=== PATIENT | male | born 1975 | race Caucasian/White ===

== ENCOUNTER 2018-07-04 00:26 | Outpatient (CLI) | payer SELFPAY ==
[2018-07-04] MEDS: Omnipaque 350 MG/ML 100 ML BTL IJ (12:35)
--- NOTE | 2018-07-04 12:45 | DI.CT_ITS ---
SYMPTOMS/DIAGNOSIS: LEFT LOWER QUADRANT PAIN STARTED AFTER LIFTING INJURY, ? HERNIA CT OF THE ABDOMEN AND PELVIS: Comparison is made with July,. Images were performed from the lung bases through the ischial tuberosities after IV and without oral contrast. The lung bases are clear. The heart size is normal. The liver, gallbladder, spleen, pancreas, adrenals and kidneys are unremarkable. The appendix appears normal. No bowel dilatation or inflammatory changes are seen. There is a small amount of fat at the umbilicus. No inguinal hernias are seen. There is no visible soft tissue hematoma. The prostate is normal in size. The urinary bladder is nearly empty. The aorta is normal in diameter. There are mild degenerative changes in the spine. IMPRESSION: No acute abnormality.
== END 2018-07-04 00:46 ==
PROVIDERS: PCP General Practice; Visit Provider Nurse Practitioner Family
DX: R10.32 Left lower quadrant pain (principal)
CPT/HCPCS: 74177; J3490

== ENCOUNTER 2019-07-21 12:02 | Outpatient (REF) | payer MEDICAID, SELFPAY ==
[2019-07-21 18:46] LABS: HCT 46.1 % (40.0-50.0); Mean Corp. HGB Concentration 32.5 g/dL (32.0-36.0); Mean Corpuscular Hemoglobin 29.9 pg (27.0-33.0); Mean Corpuscular Volume 91.8 fL (80-95); Mean Platelet Volume 10.7 fL (8.0-11.0); Platelet Count 283 x1000/uL (130-400); RBC 5.02 m/cumm (4.50-6.00); RBC Distribution Width 12.7 % (11.8-14.1); White Blood Cell Count 9.56 k/cumm (4.4-10.8)
[2019-07-21 19:12] LABS: ALT 45 U/L (16-63); AST 18 U/L (15-37); Albumin 4.4 g/dL (3.4-5.0); Alkaline Phosphatase 50 U/L (46-116); Anion Gap 5.9 mmol/L (3-11); BUN 17 mg/dL (7-18); Bilirubin, Total 0.8 mg/dL (0.2-1.0); CO2 31.1 mmol/L (21.0-32.0); CREATININE 1.24 mg/dL (0.70-1.30); Calcium 9.3 mg/dL (8.5-10.1); Calculated LDL 160 mg/dL (<100); Chloride 103 mmol/L (98-107); Cholesterol 267 mg/dL (<200); Glucose 91 mg/dL (74-106); HDL Cholesterol 47 mg/dL (40-60); Potassium 4.7 mmol/L (3.5-5.1); Sodium 140 mmol/L (136-145); Total Protein 7.7 g/dL (6.4-8.2); Triglyceride 301 mg/dL (<150)
[2019-07-23 10:34] LABS: HIV-1/2 Ag & Ab Screen Negative (Negative)
[2019-07-23 10:56] LABS: HBs Antibody, Quant <3.1 mIU/mL (See Note); Hepatitis B Surface Ab Negative (See Note); Hepatitis B Surface Ag Negative (Negative)
[2019-07-23 11:28] LABS: Hepatitis C Ab w Rflx HCV PCR Negative (Negative)
[2019-07-23 11:45] LABS: Syphilis Serology (RPR) Negative (Negative)
[2019-07-23 12:56] LABS: Chlamydia Result Negative (Negative); GC Result Negative (Negative)
== END 2019-07-21 12:22 ==
LOC: NCHCN 12:02
PROVIDERS: PCP Nurse Practitioner Family; Visit Provider Nurse Practitioner Family
DX: Z13.220 Encounter for screening for lipoid disorders (principal); Z11.59 Encounter for screening for other viral diseases; Z00.00 Encounter for general adult medical examination without abnormal findings; Z11.4 Encounter for screening for human immunodeficiency virus [HIV]; Z11.3 Encounter for screening for infections with a predominantly sexual mode of transmission
CPT/HCPCS: 80053; 80061; 85027; 86706; 86803; 87340; 87389; 87491; 87591; 86592

== ENCOUNTER 2020-11-09 18:38 | Observation (INO) | payer MEDICAID, SELFPAY ==
[2020-11-09] VITALS (17 sets, daily range): BP systolic 108–140; BP diastolic 79–90; PULSE 68–101; RESP 17–26; TEMP 36.8; O2SAT 94–99
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
--- NOTE | 2020-11-09 19:00 | RT.EKG_ITS ---
APPROVED REPORT Exam: Resting ECG Reason for Exam: possible cva Patient Location: E HR:82 bpm ECG Measurements Heart Rate 82 AXIS MT 151 P 32 QRSd 97 QRS -7 QT 369 T 27 QTc 430 Conclusion Sinus rhythm...normal P axis, V-rate 60- 99 Probable left atrial enlargement...P >50mS, <-0.10mV V1 I have reviewed and interpreted ECG and agree with software generated interpretation.
[2020-11-09] MEDS: Omnipaque 350 MG/ML 100 ML BTL IJ (19:28)
[2020-11-09] MEDS: Normal Saline - Diluent 50 ML VIAL IV (19:29)
[2020-11-09 19:32] LABS: Abs Immature Grans 0.03 10^3/uL (0.0-0.06); Absolute Basophil Count 0.04 10^3/uL (0.0-0.2); Absolute Eosinophil Count 0.19 10^3/uL (0.0-0.7); Absolute Lymphocyte Count 2.07 10^3/uL (1.2-3.4); Absolute Monocyte Count 1.11 10^3/uL (0.1-0.8); Basophils % 0.4; Eosinophils % 1.9; HCT 46.1 % (40.0-50.0); HGB 15.6 g/dL (13.5-17.5); Immature Grans % 0.3; Lymphocytes % 20.8; MCHC 33.8 % (32.0-36.0); MCV 94.5 fL (80-95); Monocytes % 11.2; Neutrophils % 65.4; Nucleated RBC 0 %; Platelet Count 290 10^3/uL (130-400); RBC 4.88 10^6/uL (4.36-5.78); RDW 12.4 % (11.8-14.1); RDW-SD 43.2 fL; WBC 9.94 10^3/uL (4.4-10.8)
[2020-11-09 19:35] LABS: Prothrombin Time 10.1 sec (9.3-11.0)
[2020-11-09 19:38] LABS: ETHANOL BLOOD 90.9 mg/dL (<3)
--- NOTE | 2020-11-09 19:41 | DI.CT_ITS ---
Exam(s) CT BRAIN NECK CTA EXAM: CT BRAIN NECK CTA CLINICAL HISTORY: R sided HOOKS, L hand/tongue numbness, r/o cva. TECHNIQUE: Imaging Protocol: Axial CT angiography was performed with multi-slice acquisition and mu lti-planar and/or 3D reconstructions. CONTRAST MATERIAL: Intravenous: Omnipaque 350 Contrast volume:85cc FINDINGS: CTA Neck W: Aortic arch anatomy: Aortic arch anatomy is un conventional in that the left vertebral artery arises as an independent vessel off the aortic arch instead of arising in conventional fashion off of the le ft subclavian artery. There is no significant stenosis at the origin of this vessel nor of the other great vessels off of t he aortic arch. Anterior circulation: Both common carotid arteries exhibit normal diameters and no significant plaque. There is also no si gnificant atherosclerotic disease at the level the carotid bifurcations nor in the proximal internal carotid arteries in the neck nor in the more distal aspect of these non tortuous vessels in the neck. Both internal carotid arteries are demonstrated to be patent in the skull base-carotid canals Posterior circulation: The vertebral arteries are patent without intraluminal thrombus nor dissection. Both exhibit approxi mately equal normal diameters in the foramen transversarium. At the skull base both vertebral arteri es contribute to the formation of the basilar artery. CTA Brain W: Anterior circulation: Both internal carotid arteries are patent in the skull base as well as within the cavernous sinuses. The supraclinoid aspects of these vessels are patent and nonaneurysmal. Both middle cerebral arteri es are demonstrated be patent out to the sylvian fissure branches. No intraluminal thrombus nor aneu rysm seen in these vessels. Both A1 segments are patent as are both anterior cerebral arteries. The re is a double anterior communicating artery evident. No aneurysm at this level. Posterior circulation: Basilar artery is formed at the skull base by both vertebral arteries. The basilar artery ascends in the midline. Distally the basilar artery terminates as patent bilateral posterior cerebral arteries . The superior cerebellar arteries appear to originate off a common trunk with posterior cerebral ar teries. The left superior cerebellar artery is less than typically opacified. CT BRAIN: There is no evidence of intracranial hemorrhage, mass effect, or shift of midline structures. There are no extra-axial fluid collections. Ventricles are not enlarged or shifted and there is no blood w ithin the ventricular system nor within the basal cisterns. There are no ring enhancing lesions in t he brain and no abnormal meningeal enhancement. IMPRESSION: 1. No acute intracranial findings. No abnormal intracranial enhancement. 2. Patent carotid and vertebral arteries in the neck. No significant atherosclerotic involvement of these vessels in the neck. 3. Patent intracranial arteries, as described above. If clinically indicated follow-up MRI/MRA can be performed RADIATION DOSE DELIVERED: 2,265.56mGy.cm Total DLP DATA REPOSITORY: All CT scans at this facility are submitted to the National Radiology Data Registry (NRDR) Dose Index Registry (DIR) with the [employer] ([employer]). RADIATION OPTIMIZATION: All CT scans at this facility use at least one of these dose optimization te chniques: automated exposure control; mA and/or kV adjustment per patient size (includes targeted exa ms where dose is matched to clinical indication); or iterative reconstruction.
--- NOTE | 2020-11-09 19:41 | DI.RAD_ITS ---
Exam(s) XR CHEST 2V PA LATERAL EXAM: XR CHEST 2V PA LATERAL CLINICAL HISTORY: L hand/tongue numb, possible cva,r/o acute disease. TECHNIQUE: 2D digital imaging was performed. COMPARISON: CR CHEST 2 VIEWS PA,LAT from 12/07/2017 FINDINGS: Heart size is normal. The mediastinum is not widened. Right lung is clear. Increased markings in the lingular segment left lung adjacent to the heart border, more so than previ ous. No pleural effusions. No pulmonary edema. No pneumothorax. IMPRESSION: Increasing markings in the lingular segment left lung. Compatible with infiltrate at this level. Th ere are no pleural effusions. DATA REPOSITORY: RADIATION DOSE DELIVERED:
[2020-11-09 19:45] LABS: ALT 52 U/L (16-63); AST 43 U/L (15-37); Albumin 3.8 g/dL (3.4-5.0); Alkaline Phosphatase 50 U/L (46-116); BUN 8 mg/dL (7-18); CREATININE 1.1 mg/dL (0.70-1.30); Calcium 8.9 mg/dL (8.5-10.1); Chloride 100 mmol/L (98-107); Glucose 98 mg/dL (74-106); Magnesium 2.2 mg/dL (1.8-2.4); Potassium 3.8 mmol/L (3.5-5.1); Sodium 138 mmol/L (136-145); Total Protein 7.6 g/dL (6.4-8.2)
[2020-11-09 19:48] LABS: Troponin I < 0.05 ng/mL (<0.06)
[2020-11-09] MEDS: Normal Saline 1,000 ML 1000 ML IV (19:52)
--- NOTE | 2020-11-09 19:56 | NUR.NOTE ---
report given to NEAL Velazquez
--- NOTE | 2020-11-09 20:02 | DI.VRAD_ITS ---
PROCEDURE INFORMATION: Exam: XR Chest Exam date and time: 11/09/2020 7:41 PM Age: 45 years old Clinical indication: Other: Lhand/tongue numbness, possible CVA TECHNIQUE: Imaging protocol: XR of the chest. Views: 2 views. COMPARISON: CR CHEST 2 VIEWS PA,LAT 12/07/2017 7:32 PM FINDINGS: Lungs: Again noted is mild airspace opacity within the lingular segment of the left upper lobe in a configuration suggesting atelectasis/scarring. Lungs otherwise clear. There is no pulmonary vascular congestion. Pleural spaces: There are no pleural effusions present. Heart/Mediastinum: The cardiomediastinal silhouette is within normal limits. Bones/joints: Unremarkable. IMPRESSION: Stable mild airspace opacity within the lingular segment of the left upper lobe, suggesting chronic scarring/atelectasis. Dictated and Authenticated by: Diego Ortega MD. Ordering:SHILA Calix MD
--- NOTE | 2020-11-09 20:14 | DI.VRAD_ITS ---
PROCEDURE INFORMATION: Exam: CT Angiography Head Without And With Contrast, Arteriography Exam date and time: 11/09/2020 7:09 PM Age: 45 years old Clinical indication: Patient HX: Right sided headache, left hand/tongue numbness, R/O CVA TECHNIQUE: Imaging protocol: Computed tomographic angiography of the head without and with contrast. Exam focused on the arteries. 3D rendering (Not supervised by radiologist): MIP and/or 3D reconstructed images were created by the technologist. Radiation optimization: All CT scans at this facility use at least one of these dose optimization techniques: automated exposure control; mA and/or kV adjustment per patient size (includes targeted exams where dose is matched to clinical indication); or iterative reconstruction. Contrast material: [id number]; Contrast volume: 85 ml; Contrast route: INTRAVENOUS (IV); COMPARISON: No relevant prior studies available. FINDINGS: ANTERIOR CIRCULATION: Right internal carotid artery: Intracranial segment is patent with no significant stenosis or occlusion. No aneurysm. Right middle cerebral artery: No occlusion or significant stenosis. No aneurysm. Right anterior cerebral artery: No occlusion or significant stenosis. No aneurysm. Anterior communicating artery: A fenestrated/duplicated anterior communicating artery is seen. Left internal carotid artery: Intracranial segment is patent with no significant stenosis. No aneurysm. Left middle cerebral artery: No occlusion or significant stenosis. No aneurysm. Left anterior cerebral artery: No occlusion or significant stenosis. No aneurysm. POSTERIOR CIRCULATION: Right vertebral artery: No occlusion or significant stenosis. No aneurysm. Left vertebral artery: No occlusion or significant stenosis. No aneurysm. Basilar artery: No occlusion or significant stenosis. No aneurysm. Right posterior cerebral artery: No occlusion or significant stenosis. No aneurysm. Left posterior cerebral artery: No occlusion or significant stenosis. No aneurysm. HEAD: Brain: Unremarkable. No acute intracranial hemorrhage. No significant white matter disease. No edema. Cerebral ventricles: Normal. No ventriculomegaly. Bones/joints: Unremarkable. No acute fracture. Paranasal sinuses: Visualized sinuses are normal. No fluid levels. Mastoid air cells: Visualized mastoids are normal. No mastoid effusion. Soft tissues: Unremarkable. IMPRESSION: 1. No large vessel occlusion, dissection or aneurysm within the intracranial arteries. 2. No evidence for acute intracranial process. PROCEDURE INFORMATION: Exam: CT Angiography Neck Without And With Contrast Exam date and time: 11/09/2020 7:09 PM Age: 45 years old Clinical indication: Patient HX: Right sided headache, left hand/tongue numbness, R/O CVA TECHNIQUE: Imaging protocol: Computed tomographic angiography of the neck without and with contrast. 3D rendering (Not supervised by radiologist): MIP and/or 3D reconstructed images were created by the technologist. Radiation optimization: All CT scans at this facility use at least one of these dose optimization techniques: automated exposure control; mA and/or kV adjustment per patient size (includes targeted exams where dose is matched to clinical indication); or iterative reconstruction. Contrast material: [id number]; Contrast volume: 85 ml; Contrast route: INTRAVENOUS (IV); COMPARISON: No relevant prior studies available. FINDINGS: Right common carotid artery: No stenosis. No dissection or occlusion. Right internal carotid artery: No stenosis of the extracranial segment. No dissection or occlusion. Right external carotid artery: No occlusion or stenosis of the origin. Right vertebral artery: No stenosis. No dissection or occlusion. Left common carotid artery: No stenosis. No dissection or occlusion. Left internal carotid artery: No stenosis of the extracranial segment. No dissection or occlusion. Left external carotid artery: No occlusion or stenosis of the origin. Left vertebral artery: No stenosis. No dissection or occlusion. Aorta: The great vessels off the aortic arch opacify normally with contrast. Bones/joints: No acute fracture. Soft tissues: Normal. No significant soft tissue swelling. Lungs: The lung apices are well aerated. IMPRESSION: No dissection, stenosis or occlusion within the extracranial arteries. REFERENCES: NASCET CRITERIA. The degree of internal carotid artery stenosis is based on NASCET criteria. Normal is no stenosis. Mild is less than 50% stenosis. Moderate is 50-69% stenosis. Severe is 70% to 99% stenosis. Total occlusion is no detectable patent lumen. Dictated and Authenticated by: Makenna Saxena MD. Ordering:SHILA Calix MD
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
[2020-11-09] MEDS: Aspirin 325 MG TAB PO (20:38)
[2020-11-09] MEDS: ACETAMINOPHEN 1,000 MG/100 ML BTL 400 MG IVPB (20:38)
[2020-11-09 20:48] LABS: Source Nasal/Nares
--- NOTE | 2020-11-10 | DI.MRI_ITS ---
Exam(s) MR BRAIN WO EXAM: MR BRAIN WO CLINICAL HISTORY: L sided paresthesia. Possible TIA TECHNIQUE: Multiplanar multisequence MRI of the brain was performed. COMPARISON: CT CT BRAIN NECK CTA from 11/09/2020 FINDINGS: CEREBRAL PARENCHYMA: There is no evidence of intracranial hemorrhage, mass effect, or shift of midline structures. There are no extra-axial fluid collections. Ventricles are not enlarged or shifted. There is no significant focal signal abnormality in the cerebellar hemispheres nor within the nita, m idbrain, and thalami. There is no abnormal signal abnormality in the periventricular white matter. There is no significant focal signal abnormality evident on diffusion imaging to suggest acute ischem ic event. PITUITARY GLAND: No mass nor parasellar abnormality. No obvious abnormality in the cavernous sinuses. FLOW VOIDS: The expected flow void are noted. No evidence of obvious aneurysm nor obvious vascular ma lformation. PARANASAL SINUSES: The visualized paranasal sinuses appear unremarkable. No obvious finding ORBITS: No obvious findings. IMPRESSION: No significant intracranial findings on this noninfused MRI scan of the brain. DATA REPOSITORY:
[2020-11-10 00:11] LABS: COVID-19 PCR Negative (Negative)
[2020-11-10 03:29] VITALS: BP 117/81; PULSE 75; RESP 16; TEMP 36.6; O2SAT 96
[2020-11-10 07:00] VITALS: PULSE 84
[2020-11-10 07:29] LABS: Calculated LDL 114 mg/dL (<100); Cholesterol 182 mg/dL (<200); HDL Cholesterol 59 mg/dL (40-60); Triglyceride 47 mg/dL (<150)
--- NOTE | 2020-11-10 08:31 | DI.US_ITS ---
APPROVED REPORT EXAM: Comprehensive 2D, Doppler, and color-flow Echocardiogram Patient Location: In-Patient Room/Bed: 231 Security Operations Analyst: Preethi De León RDCS (AE) Indications: TIA, Paresthesia Other Information Study Quality: Adequate Conclusion Left Ventricle : The left ventricle is normal size. The left ventricular systolic function is normal. The left ventricular ejection fraction is within the normal range. There is normal left ventricular wall thickness. There is normal LV segmental wall motion. The left ventricular diastolic function is normal. LVEF is 59%. Right Ventricle : The right ventricle is normal size. The right ventricular systolic function is norm al. Atria : The left atrium size is normal. The right atrium size is normal. Valves: There are no hemodynamically significant valvular lesions. Great Vessels : The aortic root is normal in size. The ascending aorta is mildly dilated. Aortic arch is normal in caliber. IVC is normal in size and collapses >50% with inspiration. Wall motion Left Ventricle The left ventricle is normal size. The left ventricular systolic function is normal. The left ventric ular ejection fraction is within the normal range. There is normal left ventricular wall thickness. T here is normal LV segmental wall motion. The left ventricular diastolic function is normal. There is no ventricular septal defect visualized. LVEF is 59%. Right Ventricle The right ventricle is normal size. The right ventricular systolic function is normal. Atria The left atrium size is normal. The right atrium size is normal. The interatrial septum is intact wit h no evidence for an atrial septal defect. Aortic Valve The aortic valve is normal in structure. Aortic valve is trileaflet. There is no aortic valvular sten osis. No aortic regurgitation is present. Mitral Valve The mitral valve is normal in structure. No evidence of mitral valve stenosis. Trace mitral regurgita tion. Tricuspid Valve The tricuspid valve is normal in structure. There is no tricuspid valve stenosis. Trace tricuspid reg urgitation. Unable to assess PA pressure. Pulmonic Valve The pulmonary valve is normal in structure. There is no pulmonic valvular stenosis. Trace pulmonic re gurgitation. Great Vessels The aortic root is normal in size. The ascending aorta is mildly dilated. Aortic arch is normal in ca liber. IVC is normal in size and collapses >50% with inspiration. Pericardium There is no pericardial effusion. 2D Dimensions IVSD d PLAX 0.86 cm M: 0.6-1.2 LV Vol A2C d MOD 66.2 mL LVPW d PLAX 0.90 cm M: 0.6 - 1.2 LV Vol A4C d MOD 83.7 mL LVID d PLAX 4.39 cm M: 4.2 - 5.8 LA vol/ BSA A2C s A-L 18.3 mL/m2 LVDs 3.05 cm M: 2.5 - 4.0 LA vol/ BSA A4C s A-L 14.7 mL/m2 Ao Root d 2.97 cm M: 3.1 - 3.7 LA Vol/ BSA Biplane s A-L 16.7 mL/m2 RA Area A4C 11.46 cm2 LA Area A4C s MOD 12.54 cm2 RA Vol/ BSA A4C s A-L 14.7 mL/m2 LA Area A2C s MOD 13.74 cm2 Ao Asc Diam d 3.59 cm M: 2.6 - 3.4 LV EF A4C MOD 58.8 % LV EF Teichholz 57.7 % LV EF A2C MOD 61.4 % LVEF (Santiago's) 59.79 % M: 52 - 72 LV EF Biplane MOD 59.8 % LV Volume 56.76 mL M: 62 - 150 SV 45.06 mL LV Volume Index 28.81 mL/m2 M: 34 - 74 SV Index 22.81 mL/m2 LV Vol Biplane MOD 75.4 mL FS 30.15 % M-Mode TAPSE 2.00 cm (M/F) >1.7 LV Diastology MV E' medial 0.086 (>0.07 m/s) E/A Ratio 1.0 LV E/e MED 5.80 (<14) MV E Vmax 0.50 (0.4-1.3 m/s) MV E' lateral 0.081 (>0.1 m/s) MV A Vmax 0.50 (0.4-1.3 m/s) LV E/e LAT 6.15 (<14) MV E/A Ratio 0.92 MV E/E' medial 5.85 MV E/E' lateral 6.20 Aortic Valve LVOT Area 3.73 cm2 AoV Area Vmax 3.32 cm2 LVOT Vmax 0.94 m/s AoV Area/ BSA (Vmax) 1.68 cm2/m2 LVOT Mean Ky. 0.60 m/s KARLA Mean Ky. 2.88 cm2 LVOT Peak Grad 3.5 mmHg KARLA Mean Ky. Index 1.46 cm2/m2 LVOT Mean Grad 1.7 mmHg LVOT VTI 0.166 m LVOT Diam s 2.15 cm AoV Vmax 1.05 m/s Velocity Ratio 0.89 AoV Mean Ky. 0.78 m/s AoV Peak Grad 4.4 mmHg LVOT SV 61.79 mL AoV Mean Grad 2.6 mmHg AoV VTI 0.181 m AoV Area VTI 3.42 cm2 AoV Area/ BSA (VTI) 1.73 cm/m2 Mitral Valve MV DT 203 (160-240 msec) MV PHT 59 msec MV Area PHT 3.74 cm2 Pulmonary Valve PV Vmax 1.40 (0.5-1.5 m/s) RVOT Peak Gr. 2.83 mmHg PV Peak Grad 7.8 mmHg RVOT Mean Gr. 1.45 mmHg PV Mean Grad 3.6 mmHg RVOT VTI 0.161 m PV VTI 0.220 m RVOT Vmax 0.84 m/s
[2020-11-10 08:37] VITALS: BP 125/87; PULSE 77; RESP 18; TEMP 36.9; O2SAT 98
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
[2020-11-10] MEDS: Acetaminophen 500 MG TAB 1000 MG PO (13:30)
[2020-11-10 13:59] VITALS: PULSE 94
--- NOTE | 2020-12-12 09:15 | W.CARDEVENT ---
Date of service: 12/12/20 Time of Service: 09:15 Cardiac Event Recorder Referring Provider:: Juan Alberto Del Castillo Indications:: TIA Cardiac Event Note: This is a 30-day cardiac event monitor ordered for indications of transient ischemic attack Rhythm throughout was sinus. Average heart rate was 91, minimum 58, maximum 112 There was no atrial fibrillation, no high-grade AV block, no pauses greater than 3 seconds There were no apparent patient symptoms
== END 2020-11-10 14:03 | disposition home or self-care (01) ==
LOC: ER 20:27 → MS 21:02
PROVIDERS: Admitting Provider Family Medicine; Emergency Provider Physician Assistant; PCP Nurse Practitioner Family; Visit Provider Family Medicine
DX: G45.9 Transient cerebral ischemic attack, unspecified (principal); F17.210 Nicotine dependence, cigarettes, uncomplicated; H53.8 Other visual disturbances; R20.0 Anesthesia of skin; E78.5 Hyperlipidemia, unspecified; Z72.89 Other problems related to lifestyle
CPT/HCPCS: 36415; 70496; 70498; 80053; 80061; 87635; 93005; 93270; 96361; 96365; 99285; 70551; 71046; 80320; 83735; 84443; 84484; 85025; 85610; 85730; 93010; 93306; 99217; 99220; G0378; J0131; J3490

== ENCOUNTER 2020-11-25 21:04 | Emergency (ER) | payer MEDICAID, SELFPAY ==
[2020-11-25] VITALS (16 sets, daily range): BP systolic 109–160; BP diastolic 83–110; PULSE 96–123; RESP 11–20; TEMP 36.6; O2SAT 88–100
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
== END 2020-11-25 22:30 | disposition home or self-care (01) ==
PROVIDERS: Emergency Provider Nurse Practitioner Acute Care; PCP Nurse Practitioner Family
DX: T40.1X1A Poisoning by heroin, accidental (unintentional), initial encounter (principal); R41.82 Altered mental status, unspecified; R06.03 Acute respiratory distress; F10.10 Alcohol abuse, uncomplicated; F11.10 Opioid abuse, uncomplicated
CPT/HCPCS: 99283